=== PATIENT | female | born 1995 | race Caucasian/White ===

== ENCOUNTER 2017-07-23 05:48 | Day surgery (SDC) | payer BC ==
[2017-07-23] MEDS ORDERED: Decadron 4 MG INJ IV ONE (05:49)
[2017-07-23] MEDS ORDERED: SUBLIMAZE 100 MCG/2 ML IV ONE (05:49)
[2017-07-23] MEDS ORDERED: DIPRIVAN 200 MG/20 ML IV ONE (05:49)
[2017-07-23] MEDS ORDERED: TORAdol 30 mg Injection IV ONE (05:49)
[2017-07-23] MEDS ORDERED: Versed 2 MG/2 ML Injection IV ONE (05:49)
[2017-07-23] MEDS ORDERED: Zofran 4 MG/2 ML VIAL IV ONE (05:49)
[2017-07-23 06:19] VITALS: O2SAT 100
[2017-07-23] MEDS ORDERED: Lactated Ringers 1,000 ML IV SCH (06:30)
[2017-07-23] MEDS ORDERED: Lactated Ringers 1,000 ML IV ONE (07:20)
--- NOTE | 2017-07-23 07:39 | OP ---
SURGERY DATE/TIME: 07/23/2017 0638 PREOPERATIVE DIAGNOSIS: Missed . POSTOPERATIVE DIAGNOSIS: Missed . PROCEDURE: Suction dilatation and curettage. SURGEON: Seb Gutierrez M.D. ANESTHESIA: General by Aung Lea CRNA. ESTIMATED BLOOD LOSS: Minimal. SPECIMEN: Products of conception. The patient was appraised of the risks of the procedure including bleeding, infection and failure to remove all of the products of conception. After she was informed of the risks she consented to suction dilatation and curettage. DESCRIPTION OF PROCEDURE: She was taken to the operating room and placed in the dorsal lithotomy position, prepped and draped in the usual sterile fashion. A weighted speculum was inserted into the vagina and single tooth tenaculum was used to grasp the anterior edge of the cervix. Next, the uterus was sounded to a depth of approximately 8 cm. Hegar dilators were used to dilate the cervix up to a size 29 Hegar dilator and then an 8 Romanian suction tip catheter was connected to the suction device. Multiple passes were made in the uterine cavity with the suction tip with removal of tissue which appeared consistent with products of conception. The remainder of the exam was unremarkable. After suction was complete the single tooth tenaculum was removed. The vaginal vault was wiped free of any blood with the site of tenaculum insertion was inspected and there was no active bleeding. The weighted speculum was removed and the patient was transferred to the recovery room in good condition.
[2017-07-23 08:39] VITALS: BP 110/58; PULSE 74
== END 2017-07-23 08:49 | disposition home or self-care (01) ==
LOC: SDC 05:48
PROVIDERS: ATTEND Family Medicine
PROC: 10D17ZZ Extraction of Products of Conception, Retained, Via Natural or Artificial Opening (ICD-10-PCS; principal; 2017-07-23)
DX: O02.1 Missed abortion (principal)
CPT/HCPCS: 01965; 36415; 84703; 88305; J1100; J1885; J2250; J2405; J2704; J3010

== ENCOUNTER 2017-07-30 20:11 | Emergency (ER) | payer BC ==
[2017-07-30 21:09] LABS: BASOPHIL % 0.2 % (0.0-0.4); Eosinophil % 2.5 % (0.00-5.0); Granulocytes % 53.6 % (36.0-66.0); Mean Cell Volume 92.8 fl (78-100); Mean Corpuscular Hemoglobin 30.7 pg (26-32); Mean Platelet Volume 9.1 fl (6-9.5); Monocytes % 6.7 % (0.0-12.0); Platelet Count 300 K/mm3 (150-450); Red Blood Count 3.19 M/mm3 (4.1-5.4); Red Cell Distribution Width 13.7 % (11.5-14.0); White Blood Count 9.4 K/mm3 (4.0-10.5)
[2017-07-30 21:22] LABS: INR 1.05 (0.8-3.0); PROTIME 11.7 SECONDS (9.95-12.35)
--- NOTE | 2017-07-30 21:49 | ERPHSYRPT ---
- History of Present Illness Time Seen by Provider: 07/30/17 20:44 Source: patient Exam Limitations: clinical condition Patient Subjective Stated Complaint: pt had a d&c 6 days ago and after talking to a friend she is afraid she is passing to many clots -she has used 3 pads today since 0700 -the surgery was done for a misc at 7 weeks she she has no pain at present but she took norco at 0900 no fever Triage Nursing Assessment: pt is awake and alert and able to answer questions - states she has had the same pad on since 1500 Physician History: PATIENT UNDERWENT A D AND C 7 DAYS AGO FOR INCOMPLETE AND COMPLAINS OF VAGINAL BLEEDING SINCE HER SURGERY. DENIES WEAKNESS, DIZZINESS OR ABDOMINAL PAIN. Timing/Duration: day(s) Activites at Onset: none Quality: other (DENIES PAIN) Pain Radiation: none Severity of Pain-Max: none Severity of Pain-Current: none Prior abdominal problems: none Sexual intercourse history: non-contributory, unprotected intercourse Associated Symptoms: denies symptoms Allergies/Adverse Reactions: No Known Drug Allergies Allergy (Verified 07/30/17 20:38) Home Medications: No Reportable Medications [No Reported Medications] 07/22/17 [History] - Review of Systems Constitutional: No Fever, No Chills Eyes: No Symptoms Ears, Nose, & Throat: No Symptoms Respiratory: No Cough, No Dyspnea Cardiac: No Chest Pain, No Edema, No Syncope Abdominal/Gastrointestinal: No Abdominal Pain, No Nausea, No Vomiting, No Diarrhea Genitourinary Symptoms: Vaginal Bleeding, No Dysuria Musculoskeletal: No Symptoms, No Back Pain, No Neck Pain Skin: No Rash Neurological: No Dizziness, No Focal Weakness, No Sensory Changes Psychological: No Symptoms Endocrine: No Symptoms All Other Systems: Reviewed and Negative - Past Medical History Pertinent Past Medical History: No - Past Surgical History Past Surgical History: Yes Female Surgical History: Dilation & Curettage - Social History Smoking Status: Current every day smoker How long have you smoked: 2 Exposure to second hand smoke: Yes Drug Use: none Patient Lives Alone: No - Female History Hx Last Menstrual Period: unknown - Nursing Vital Signs Nursing Vital Signs: Initial Vital Signs Temperature 98.4 F 07/30/17 20:38 Pulse Rate 92 H 07/30/17 20:38 Respiratory Rate 16 07/30/17 20:38 Blood Pressure 130/62 07/30/17 20:38 O2 Sat by Pulse Oximetry 99 07/30/17 20:38 Pain Scale Pain Intensity 7 - Physical Exam General Appearance: no apparent distress, alert Eye Exam: PERRL/EOMI, eyes nml inspection Ears, Nose, Throat Exam: normal ENT inspection, TMs normal, pharynx normal, moist mucous membranes Neck Exam: normal inspection, non-tender, supple, full range of motion Respiratory Exam: normal breath sounds, lungs clear, No respiratory distress Cardiovascular Exam: regular rate/rhythm, normal heart sounds, normal peripheral pulses Gastrointestinal/Abdomen Exam: soft, normal bowel sounds, other (NONTENDER), No tenderness, No mass Pelvic Exam: normal external exam, other (MINIMAL BLOOD IN VAGINAL VAULT, NO CERVICAL MOTION TENDERNESS, URINE SIZE NORMAL) Back Exam: normal inspection, normal range of motion, No CVA tenderness, No vertebral tenderness Extremity Exam: normal inspection, normal range of motion, pelvis stable Neurologic Exam: alert, oriented x 3, cooperative, edge grinder II-XII nml as tested, normal mood/affect, sensation nml, No motor deficits Skin Exam: normal color, warm, dry Lymphatic Exam: No adenopathy SpO2 Interpretation: normal SpO2: 100 Oxygen Delivery: Room Air Ordered Tests: Active Orders 24 hr Category Date Time Status CBC W DIFF Stat Lab 07/30/17 20:45 Completed PROTIME WITH INR Stat Lab 07/30/17 20:45 Completed UA W/RFX UR CULTURE Stat Lab 07/30/17 20:41 Ordered Lab/Rad Data: Laboratory Result Diagrams 07/30/17 20:45 Laboratory Results 07/30/17 07/30/17 Range/Units 20:45 20:45 WBC 9.4 (4.0-10.5) K/mm3 RBC 3.19 L (4.1-5.4) M/mm3 Hgb 9.8 L (12.0-16.0) gm/dl Hct 29.6 L (35-47) % MCV 92.8 (78-100) fl MCH 30.7 (26-32) pg MCHC 33.1 (32-36) g/dl RDW 13.7 (11.5-14.0) % Plt Count 300 (150-450) K/mm3 MPV 9.1 (6-9.5) fl Gran % 53.6 (36.0-66.0) % Lymphocytes % 37.0 (24.0-44.0) % Monocytes % 6.7 (0.0-12.0) % Eosinophils % 2.5 (0.00-5.0) % Basophils % 0.2 (0.0-0.4) % Basophils # 0.02 (0-0.4) INR 1.05 (0.8-3.0) - Progress Counseled pt/family regarding: lab results, diagnosis, need for follow-up - Departure Time of Disposition: 21:55 Departure Disposition: Home Clinical Impression: VAGINAL BLEEDING Condition: Stable Critical Care Time: No Referrals: BASSEM HESTER [Primary Care Provider] - Additional Instructions: CALLED YOUR FAMILY TOMORROW FOR APPOINTMENT. RETURN TO EMERGENCY FOR ONSET OF WEAKNESS, DIZZINESS OR INCREASING BLEEDING.
[2017-07-30 22:15] VITALS: BP 128/70; PULSE 72; O2SAT 99
== END 2017-07-30 22:17 | disposition home or self-care (01) ==
LOC: ED 20:11
DX: N93.9 Abnormal uterine and vaginal bleeding, unspecified (principal); Z98.890 Other specified postprocedural states
CPT/HCPCS: 36415; 85025; 85610; 99283; 99284

== ENCOUNTER 2023-07-02 07:39 | Inpatient (IN) | payer OTHER ==
[2023-07-02] MEDS ORDERED: Zofran 4 MG/2 ML VIAL IV PRN (17:00)
[2023-07-02] MEDS ORDERED: TYLENOL EXTRA STRENGTH 500 MG PO PRN (17:00)
[2023-07-02] MEDS ORDERED: miSOPROStoL PO SCH (17:00)
[2023-07-02] MEDS ORDERED: STADOL 2 MG IV PRN (17:00)
[2023-07-02] MEDS ORDERED: Lactated Ringers 1,000 ML IV SCH (17:00)
[2023-07-02 17:41] LABS: Absolute Neutrophil Ct (ANC) 8.85 x10^3/uL (1.4-6.9); BASOPHIL % 0.2 % (0.0-0.4); Basophil (Absolute #) 0.02 x10^3/uL (0-0.4); Eosinophil % 0.7 % (0.00-5.0); Eosinophil (Absolute #) 0.08 x10^3/uL (0-0.5); Hematocrit 33.7 % (35-47); Hemoglobin 10.8 g/dL (12.0-16.0); IMMATURE GRAN # 0.12 x10^3u/L (0.00-0.03); Lymphocyte (Absolute #) 1.89 x10^3/uL (1.0-4.6); Lymphocytes % 16.1 % (24.0-44.0); Mean Cell Volume 93.9 fL (78-100); Mean Corpuscular Hemoglobin 30.1 pg (26-32); Monocyte (Absolute #) 0.79 x10^3/uL (0.0-1.3); Monocytes % 6.7 % (0.0-12.0); Neutrophil % 75.3 % (36.0-66.0); Platelet Count 261 x10^3/uL (150-450); Red Blood Count 3.59 x10^6/uL (4.1-5.4); Red Cell Distribution Width 16.9 % (11.5-14.0); White Blood Count 11.8 x10^3/uL (4.0-10.5)
[2023-07-02] MEDS: CYTOTEC PO SCH ×3 (18:05→22:00)
[2023-07-02 18:48] LABS: Amphetamine,Urine NEGATIVE (NEGATIVE); Barbiturate,Urine NEGATIVE (NEGATIVE); Benzodiazepine,Urine NEGATIVE (NEGATIVE); Cocaine,Urine NEGATIVE (NEGATIVE); Methadone,Urine NEGATIVE (NEGATIVE); Opiate,Urine NEGATIVE (NEGATIVE); PCP,Urine NEGATIVE (NEGATIVE); THC,Urine NEGATIVE (NEGATIVE)
[2023-07-02 19:03] LABS: ABO TYPING B; Antibody Screen NEGATIVE (NEGATIVE); RH TYPING POSITIVE
[2023-07-03] MEDS: CYTOTEC PO SCH ×4 (03:21→04:52)
[2023-07-03] MEDS ORDERED: PITOCIN 30 UNITS/ LR 500 ML 30 UNITS/500 ML PLAST..BAG IV SCH ×2 (05:00→09:00)
[2023-07-03] MEDS ORDERED: Ephedrine Sulfate 50 MG/ML IV PRN (06:41)
[2023-07-03] MEDS ORDERED: Lactated Ringers 1,000 ML IV ONE (06:41)
[2023-07-03] MEDS ORDERED: FENTANYL 2 MCG-BUPIV 0.125%-NS 250 ML Epidur 250 ML EPIDURAL SCH (06:45)
[2023-07-03 14:01] LABS: Appearance Clear (Clear); Bacteria None Seen /HPF (None Seen); Bilirubin Negative (Negative); Blood Trace (Negative); Epithelial Cells None Seen /HPF (None Seen); Glucose, Urine Negative (Negative); Hyaline Casts NONE SEEN /LPF (0-2); Ketones Negative (Negative); Leukocyte Esterase Negative (Negative); Nitrite Negative (Negative); Ph 7.5 (4.6-8.0); Protein,Urine Dip Negative (Negative); RBC 0-2 /HPF (0-5); Specific Gravity <=1.005 (1.005-1.030); Urobilinogen 0.2 mg/dL (0.2); WBC 0-2 /HPF (0-5)
[2023-07-03 14:10] LABS: ADD URINE CULTURE? ORDERED SEPARATELY (NO)
[2023-07-03] MEDS ORDERED: MOTRIN 400 MG PO PRN (14:33)
[2023-07-03] MEDS ORDERED: TUCKS TP PRN (14:33)
[2023-07-03] MEDS ORDERED: Mylicon 80MG PO PRN (14:33)
[2023-07-03] MEDS ORDERED: LANSINOH 40 GM TOP PRN (14:33)
[2023-07-03] MEDS ORDERED: Dermoplast Spray TP PRN (14:33)
[2023-07-03] MEDS ORDERED: Adacel Vial IM ONE (18:00)
[2023-07-03 19:48] VITALS: O2SAT 97
[2023-07-03] MEDS ORDERED: Docusate Sodium 100 MG PO SCH (22:00)
[2023-07-04 05:13] LABS: Absolute Neutrophil Ct (ANC) 9.34 x10^3/uL (1.4-6.9); BASOPHIL % 0.3 % (0.0-0.4); Basophil (Absolute #) 0.04 x10^3/uL (0-0.4); Eosinophil % 1.1 % (0.00-5.0); Eosinophil (Absolute #) 0.14 x10^3/uL (0-0.5); Hematocrit 34.1 % (35-47); Hemoglobin 10.8 g/dL (12.0-16.0); IMMATURE GRAN # 0.11 x10^3u/L (0.00-0.03); IMMATURE GRAN % 0.8 % (0.00-0.4); Lymphocyte (Absolute #) 2.78 x10^3/uL (1.0-4.6); Mean Cell Volume 95.5 fL (78-100); Mean Corpuscular Hemoglobin 30.3 pg (26-32); Mean Corpuscular Hgb Concent. 31.7 g/dL (32-36); Mean Platelet Volume 9.6 fL (7.5-11.0); Monocyte (Absolute #) 0.84 x10^3/uL (0.0-1.3); Monocytes % 6.3 % (0.0-12.0); Neutrophil % 70.5 % (36.0-66.0); Platelet Count 274 x10^3/uL (150-450); Red Blood Count 3.57 x10^6/uL (4.1-5.4); Red Cell Distribution Width 17.1 % (11.5-14.0); White Blood Count 13.3 x10^3/uL (4.0-10.5)
--- NOTE | 2023-07-04 07:50 | PCM.NOTE ---
Date and Time: 07/04/23747 Subjective Assessment: ppd 1 sp pt resting in bed and doing well. ambulating and tolerating diet vss afebrile abd; soft uterus; firm lochia; mild a/p sp ppd 1 pt desires to be discharged home today should fu in office in 3 wks OBJECTIVE DATA Vital Signs: Vital Signs - 24 hr Temp Pulse Resp BP BP Pulse Ox 07/04/23 02:00 97.9 F 90 20 115/63 97 07/03/23 19:46 98.2 F 98 H 18 114/59 97 07/03/23 18:30 98.1 F 94 H 16 112/58 98 07/03/23 16:00 98.1 F 94 H 16 112/58 97 07/03/23 14:30 98.0 F 86 16 131/61 97 07/03/23 13:30 98.0 F 88 16 108/58 98 07/03/23 12:30 98.0 F 88 16 112/54 98 07/03/23 12:15 98.0 F 88 16 112/54 98 07/03/23 12:00 98.1 F 94 H 16 112/58 98 07/03/23 11:45 98.0 F 90 16 135/63 98 07/03/23 11:15 88 16 119/70 98 07/03/23 11:00 89 16 113/67 98 07/03/23 10:45 89 16 127/64 98 07/03/23 10:30 89 16 127/64 98 07/03/23 10:15 93 H 16 118/69 98 07/03/23 10:00 86 16 114/69 98 07/03/23 09:45 84 16 124/70 98 07/03/23 09:30 86 16 126/65 98 07/03/23 09:15 87 16 114/62 97 07/03/23 09:00 96 H 16 113/61 98 07/03/23 08:45 88 16 107/58 98 07/03/23 08:30 80 16 116/66 97 07/03/23 08:15 80 16 116/66 97 07/03/23 08:00 84 16 123/74 98 Pain Assessment - Last Documented Pain Intensity [Bilateral 3 Lower] Pain Intensity 0 Intake and Output: Intake & Output 08/22/07/02/23 07/03/23 07/04/23 11:59 11:59 11:59 11:59 Intake Total 1500 1000 Output Total 900 Balance 600 1000 Weight 83.461 kg Lab Results: Lab Results-Last 24 Hours 07/03/23 07/04/23 Range/Units 13:00 04:05 WBC 13.3 H (4.0-10.5) x10^3/uL RBC 3.57 L (4.1-5.4) x10^6/uL Hgb 10.8 L (12.0-16.0) g/dL Hct 34.1 L (35-47) % MCV 95.5 (78-100) fL MCH 30.3 (26-32) pg MCHC 31.7 L (32-36) g/dL RDW 17.1 H (11.5-14.0) % Plt Count 274 (150-450) x10^3/uL MPV 9.6 (7.5-11.0) fL Gran % 70.5 H (36.0-66.0) % Immature Gran % (Auto) 0.8 H (0.00-0.4) % Nucleat RBC Rel Count 0.0 (0.00-0.1) % Eos # (Auto) 0.14 (0-0.5) x10^3/uL Immature Gran # (Auto) 0.11 H (0.00-0.03) x10^3u/L Absolute Lymphs (auto) 2.78 (1.0-4.6) x10^3/uL Absolute Monos (auto) 0.84 (0.0-1.3) x10^3/uL Absolute Nucleated RBC 0.00 (0.00-0.01) x10^3u/L Lymphocytes % 21.0 L (24.0-44.0) % Monocytes % 6.3 (0.0-12.0) % Eosinophils % 1.1 (0.00-5.0) % Basophils % 0.3 (0.0-0.4) % Absolute Granulocytes 9.34 H (1.4-6.9) x10^3/uL Basophils # 0.04 (0-0.4) x10^3/uL Urine Color Yellow (Yellow) Urine Appearance Clear (Clear) Urine pH 7.5 (4.6-8.0) Ur Specific [place] <=1.005 (1.005-1.030) Urine Protein Negative (Negative) Urine Glucose (UA) Negative (Negative) mg/dL Urine Ketones Negative (Negative) Urine Blood Trace (Negative) Urine Nitrite Negative (Negative) Urine Bilirubin Negative (Negative) Urine Urobilinogen 0.2 (0.2) mg/dL Ur Leukocyte Esterase Negative (Negative) U Hyaline Cast (Auto) NONE SEEN (0-2) /LPF Urine Microscopic RBC 0-2 (0-5) /HPF Urine Microscopic WBC 0-2 (0-5) /HPF Ur Epithelial Cells None Seen (None Seen) /HPF Urine Bacteria None Seen (None Seen) /HPF Urine Culture Reflexed ORDERED SEPARATELY (NO) Assessment/Plan (1) Vaginal delivery Current Visit: Yes Status: Acute Code(s): O80 - ENCOUNTER FOR FULL-TERM UNCOMPLICATED DELIVERY
--- NOTE | 2023-07-04 07:52 | PCM.DS ---
Discharge Summary Date of Admission: 07/03/23 07:39 Admitting Physician: ALLISON MARTIN DO Consults: Consults on Case 07/03/23 06:41 Notify Anesthesia Provider PRN 07/03/23 14:27 Navigation ONCE Primary Care Provider: ALLISON MARTIN DO Allergies Allergies No Known Drug Allergies Allergy (Verified 06/25/23 12:21) Hospital Summary - Hospital Course Hospital Course: pt admitted on july 02 for cytotec induction at 39 wks gestation and subsequently delivered live baby girl via without complication on july 03. pt able to ambulate and tolerate diet and at this time pt desires to be discharged home. pt had stable hgb level and was advised to fu in office in 3 wks. all questions answered to her satisfaction. - Vitals & Intake/Output Vital Signs: Vital Signs Temperature 97.9 F 07/04/23 02:00 Pulse Rate 90 07/04/23 02:00 Respiratory Rate 20 07/04/23 02:00 Blood Pressure 115/63 07/04/23 02:00 O2 Sat by Pulse Oximetry 97 07/04/23 02:00 Intake & Output: Intake & Output 07/01/23 07/02/23 07/03/23 07/04/23 11:59 11:59 11:59 11:59 Intake Total 1500 1000 Output Total 900 Balance 600 1000 Weight 83.461 kg - Lab Result Diagrams: 07/04/23 04:05 Lab Results-Last 24 Hrs: Lab Results-Last 24 Hours 07/03/23 07/04/23 Range/Units 13:00 04:05 WBC 13.3 H (4.0-10.5) x10^3/uL RBC 3.57 L (4.1-5.4) x10^6/uL Hgb 10.8 L (12.0-16.0) g/dL Hct 34.1 L (35-47) % MCV 95.5 (78-100) fL MCH 30.3 (26-32) pg MCHC 31.7 L (32-36) g/dL RDW 17.1 H (11.5-14.0) % Plt Count 274 (150-450) x10^3/uL MPV 9.6 (7.5-11.0) fL Gran % 70.5 H (36.0-66.0) % Immature Gran % (Auto) 0.8 H (0.00-0.4) % Nucleat RBC Rel Count 0.0 (0.00-0.1) % Eos # (Auto) 0.14 (0-0.5) x10^3/uL Immature Gran # (Auto) 0.11 H (0.00-0.03) x10^3u/L Absolute Lymphs (auto) 2.78 (1.0-4.6) x10^3/uL Absolute Monos (auto) 0.84 (0.0-1.3) x10^3/uL Absolute Nucleated RBC 0.00 (0.00-0.01) x10^3u/L Lymphocytes % 21.0 L (24.0-44.0) % Monocytes % 6.3 (0.0-12.0) % Eosinophils % 1.1 (0.00-5.0) % Basophils % 0.3 (0.0-0.4) % Absolute Granulocytes 9.34 H (1.4-6.9) x10^3/uL Basophils # 0.04 (0-0.4) x10^3/uL Urine Color Yellow (Yellow) Urine Appearance Clear (Clear) Urine pH 7.5 (4.6-8.0) Ur Specific [place] <=1.005 (1.005-1.030) Urine Protein Negative (Negative) Urine Glucose (UA) Negative (Negative) mg/dL Urine Ketones Negative (Negative) Urine Blood Trace (Negative) Urine Nitrite Negative (Negative) Urine Bilirubin Negative (Negative) Urine Urobilinogen 0.2 (0.2) mg/dL Ur Leukocyte Esterase Negative (Negative) U Hyaline Cast (Auto) NONE SEEN (0-2) /LPF Urine Microscopic RBC 0-2 (0-5) /HPF Urine Microscopic WBC 0-2 (0-5) /HPF Ur Epithelial Cells None Seen (None Seen) /HPF Urine Bacteria None Seen (None Seen) /HPF Urine Culture Reflexed ORDERED SEPARATELY (NO) Micro Results-Entire Visit: Microbiology 07/03/23 13:54 Urine Culture - Preliminary Urine, Indwelling Catheter NO GROWTH TO DATE Final Diagnosis/Problem List - Final Discharge Diagnosis/Problem (1) Vaginal delivery Current Visit: Yes Status: Acute Code(s): O80 - ENCOUNTER FOR FULL-TERM UNCOMPLICATED DELIVERY - Discharge Disposition: Home, Self-Care Condition: Stable Prescriptions: No Action Aspirin EC 81 mg [Ecotrin 81 mg] 81 mg PO DAILY Pnv No.95/Ferrous Fum/Folic AC [ Caplet] 1 each PO DAILY Ferrous Sulfate [Iron] 325 mg PO BID Follow up with: ALLISON MARTIN DO [Primary Care Provider] - 3 weeks
[2023-07-04] MEDS ORDERED: FERREX 150 PO SCH (10:00)
[2023-07-04 14:41] VITALS: RESP 18
[2023-07-04 19:59] VITALS: BP 121/58; PULSE 93; TEMP 98.4
== END 2023-07-04 20:30 | disposition home or self-care (01) | DRG 807 ==
LOC: OB 07:39 → EDSTATUS 13:07 → OB 17:00 → OBSVTOIN 07-03 07:39
PROVIDERS: ADMIT Obstetrics & Gynecology; ATTEND Obstetrics & Gynecology
PROC: 10E0XZZ Delivery of Products of Conception, External Approach (ICD-10-PCS; principal; 2023-07-03)
DX: O80 Encounter for full-term uncomplicated delivery (principal); Z37.0 Single live birth; Z3A.39 39 weeks gestation of pregnancy; Z20.828 Contact with and (suspected) exposure to other viral communicable diseases
CPT/HCPCS: 36415; 59400; 59426; 80307; 81001; 81002; 85025; 86850; 86900; 86901; 87086; G0378; G0379; J2590; A9270-GY